=== PATIENT | male | born 1935 | race Caucasian/White ===

== ENCOUNTER → 2023-07-01 14:00 | Outpatient (REF) | payer OTHER, SELFPAY | LOC: HWRAD 14:00 | PROVIDERS: ATTENDING PHYSICIAN Surgery Vascular Surgery; FAMILY PHYSICIAN Family Medicine; REFERRING PHYSICIAN Internal Medicine Cardiovascular Disease | DX: I71.42 Juxtarenal abdominal aortic aneurysm, without rupture (principal) | CPT/HCPCS: 71275; 74174; Q9967 ==

== ENCOUNTER 2023-07-22 06:02 | Inpatient (IN) | payer OTHER, MEDICARE, SELFPAY ==
[2023-07-17 08:23] VITALS: BMI 28.8
[2023-07-17 09:04] LABS: % Basophils 0.5 % (0-2); % Eosinophils 3.4 % (0-6); % Immature Granulocytes 0.4 % (0-0.5); % Lymphocytes 18.9 % (20.5-51.1); % Monocytes 12.5 % (1.7-9.3); % Neutrophils 64.3 % (42.2-75.2); Absolute Eosinophils 0.2 10^3/uL (0-0.7); Absolute Lymphocytes 1.1 10^3/uL (1.2-3.4); Absolute Monocytes 0.7 10^3/uL (0.1-0.6); Absolute Neutrophils 3.6 10^3/uL (1.4-6.5); Hematocrit 36.5 % (39.0-52.0); Hemoglobin 12.2 g/dL (13.0-18.0); Mean Corp Hgb Conc. 33.4 g/dL (33.0-37.0); Mean Corpuscular Hgb 33.3 pg (27.0-31.0); Mean Corpuscular Volume 99.7 fL (80.0-94.0); Mean Platelet Volume 9.9 fL (7.4-10.4); Nucleated Red Blood Cells % 0 % (-); Platelet Count 199 10^3/uL (130-400); Red Blood Cell Count 3.66 10^6/uL (4.70-6.10); Red Cell Dist. Width 14.3 % (11.5-14.5); White Blood Cell Count 5.6 10^3/uL (4.8-10.8)
[2023-07-17 09:10] LABS: PT 14.2 Sec (11.4-14.6)
[2023-07-17 09:24] LABS: Glycohemoglobin (HgbA1c) 5.5 % (4.0-5.6)
[2023-07-17 11:15] LABS: Blood Urea Nitrogen 29 mg/dl (9-20); Calcium 9.3 mg/dl (8.4-10.2); Carbon Dioxide 25 mmol/L (22-30); Chloride 107 mmol/L (98-107); Estimated Creatinine Clearance 38 ml/min; Glucose 94 mg/dl (70-99); Potassium 4.5 mmol/L (3.5-5.1); Sodium 136 mmol/L (135-145); eGFR 58.17
[2023-07-22] VITALS (15 sets, daily range): BP systolic 104–155; BP diastolic 54–83; BMI 28.3
--- NOTE | 2023-07-22 07:00 | W.SUR.PREOP ---
Addendum entered and electronically signed by Ken Samuels MD 07/22/23 07:37:
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 Streaming of contrast into the thrombus burden. Some overall ominous findings. Significant concern for rupture. I have
discussed with him clearly need for celiac artery coverage. Other alternative would be snorkel (long snorkel) or periscope. My concern with these would be with a snorkel just distal to the snorkel only 1.5 cm to seal. Therefore inadequate distal
seal likely. And my concern with the periscope is potential coverage of the SMA by the periscope stent. Also sealing is a concern in that setting. Therefore I do not think there is any other great option at without open surgical revascularization
of the celiac/hepatic artery. However he is 88 years old with cardiomyopathy and an EF of 35 to 40%. Significantly high risk as is. I have discussed this all with him. He understands all the risks. Therefore we will plan advertent coverage of
celiac artery with stent. (Without revascularization). Forgut ischemia risks again discussed (in addition to other risks as discussed in office as well). He understands all wishes to proceed.
Original Note:
Pre-Operative Surgical Note
-
I have examined this patient prior to the performance of the scheduled procedure.
The patient's condition is unchanged from the time of the current History and
Physical and the patient is able to undergo the scheduled procedure.
--- NOTE | 2023-07-22 10:03 | W.SUR.POST ---
Surgical Immediate Post Op
Note
Pre Op Diagnosis: AAA
Post Op Diagnosis: AAA
Procedure Performed: TEVAR
Primary Surgeon: Arvind
Assist: Yamilet RIVAS
Anesthesia: General
Estimated Blood Loss: 20cc
Fluids: see anesthesia flow sheet
Drains/Shunts: none
Specimens/Cultures: none
Doppler/Duplex/Angio (Y/N): Y
Complications: none
Operative Findings: Palpable
[2023-07-22 10:44] LABS: Hematocrit 35.4 % (39.0-52.0); Mean Corp Hgb Conc. 33.9 g/dL (33.0-37.0); Mean Corpuscular Hgb 33.2 pg (27.0-31.0); Mean Corpuscular Volume 98.1 fL (80.0-94.0); Mean Platelet Volume 9.8 fL (7.4-10.4); Platelet Count 211 10^3/uL (130-400); Red Blood Cell Count 3.61 10^6/uL (4.70-6.10); Red Cell Dist. Width 14.3 % (11.5-14.5); White Blood Cell Count 10.7 10^3/uL (4.8-10.8)
--- NOTE | 2023-07-22 10:48 | OR.RPT ---
Operative Report
Operative Report
PROCEDURE DATE: 07/22/2023
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
Postoperative diagnosis: Same
Procedure:
1. (TEVAR) Endovascular repair of thoraco-abdominal aortic aneurysm with Dodson conformable 34mm x 15cm thoracic aortic endoprosthesis. ([id number]).
2. Percutaneous right common femoral artery closure.
3. Selective cannulation of celiac and superior mesenteric artery with selective celiac and mesenteric angiography.
4. Supervision and interpretation
Surgeon: Arvind
Vocational Technical Education Teacher: Yamilet
Complications: None
Anesthesia: General
Fluoro:
18.3min
1128 mGy
278.62 DAP
Indications for procedure:
Patient with known history of abdominal aortic aneurysm. Recent ultrasound had suggested significant enlargement of the proximal segment from 3 cm prior to over [address] angiogram was ordered by me after seeing him. This was done relatively
expeditiously. This confirmed a thoracoabdominal aortic aneurysm (type V) that terminated just short of the celiac artery. There was somewhat of a calcified rim but it had a large saccular appearance, as well as streaming of contrast into the
thrombus which potentially portended increased rupture risk. Therefore I discussed with patient endovascular repair. Given his age and depressed cardiac function/cardiomyopathy, I felt he was not a candidate for an open surgical or hybrid open
surgical approach. We discussed extensively coverage of the celiac artery intentionally. Discussed endovascular revascularization options (snorkel or chimney) were right with difficulty of potentially diminishing adequate seal of the stent graft
distally. In addition periscope type stent graft in the celiac not only around the risk of poor sealing distally but also coverage of the SMA inadvertently. There appeared to be collateralization through the pancreatic bed on preoperative CT
angiogram imaging. Therefore discussed intentional coverage of the celiac artery. I had discussed also amongst other risks with the patient the risk of paraplegia. Given his age, reasonable collateralization, short length of coverage, I felt that
preoperative spinal drainage carries more risk than benefit. Risk/benefits/alternatives of TEVAR were fully discussed. Patient understood all wish to proceed.
Description of procedure:
Patient was identified brought to the operating room placed on the table in supine position. After the adequate administration of anesthesia and perioperative antibiotics he was prepped and draped in the standard surgical fashion. A standard
preoperative timeout was undertaken and everybody was in agreement the plan. Bilateral common femoral artery access was obtained under direct duplex ultrasound guidance. 6 [place] sheaths were placed over 0.035 inch wires. In the right groin a 1
cm incision was made around the sheath entry site, and, blunt dissection was undertaken with hemostats to facilitate percutaneous suture delivery. Next, using the ProGlide suture system, percutaneous sutures were deployed at the 10:00 and 2 o'clock
position in the right groin in the standard fashion. Suture strands were tagged outside the skin. We exchanged for 11 [place] sheath in the right groin. Next using a KMP catheter, I guided wires into the supraceliac aorta from the right groin, and
then exchanged for an Amplatz wire and then exchanged under direct fluoroscopy for a 22 [place] Dodson dry seal sheath.
Next, I planned to selectively catheterize both the celiac and SMA so as to balloon occluded test the celiac artery to assess for collateral flow via SMA. Next, I then inserted a second wire and a visceral selective type catheter through the 22
[place] Dodson dry seal sheath. I was able to hook and cannulate the superior mesenteric artery. This proved to be somewhat challenging. But angiogram confirmed as in the true lumen. Next, through my left sided sheath access I used another visceral
selective catheter and tried to hook the celiac artery. I was able to hook it multiple times, but could not get any wire purchase. This was likely due to the tortuosity or the J like curve (on preoperative CT imaging patient had a median arcuate
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 Therefore at this point, I felt that this was more risky than beneficial. I therefore aborted attempting to cannulate the celiac artery any further. In
addition, I wished to maintain SMA access for the TEVAR stenting. Therefore I then withdrew my SMA catheter and wire from the right sided Dodson dry seal access, and we cannulated it from the left-sided access. I was able to gain wire access
distally after confirming I was in the true lumen of the SMA. I then exchanged for a glide catheter and then a Foster wire. I then withdrew my glide catheter and maintained wire access in the SMA.
Now I inserted a pigtail catheter through my right-sided access, and I went to a lateral projection with the C arm. I performed power injection aortography. I was able to as such marked the aneurysm, as well as marked the origin of the celiac and
the SMA (although the SMA origin could be seen with my wire in place). I therefore marked the distalmost aspect of the seal zone that was possible if I was still landed directly at the origin of the SMA. However I noted that I had at least 3 cm of
seal zone in the aneurysm, 2-1/2 cm at least of which was distal to the celiac artery. Therefore I felt I could safely not encroach on the origin of the SMA and still obtain adequate seal. Having locked the gantry in the table in position and
marked the screen, I now exchanged out my pigtail catheter over a Amplatz wire for the device which was a Dodson conformable thoracic stent graft 34 mm x 34mm x 15 cm ([id number]). I then positioned it in place again due to adequate seal length
distally I did not encroach too much on the SMA origin. At this point, I had my anesthesiology colleagues raise the mean arterial blood pressures over 90 mm (closer to 95 mm, though patient starting pressures were much lower and therefore this was
an adequate rise I felt). Once satisfied with positioning, I deployed it in the standard fashion. This was a conformable stent graft and therefore it was deployed 50%. I was happy with the positioning and did not need to move it. I therefore
then completed the deployment and release of constraints. I was very satisfied with the positioning. I then withdrew the delivery device. I used a molding balloon to balloon mold the proximal and distal seal zones. I now exchanged for a pigtail
catheter and performed lateral and AP completion aortography. This demonstrated excellent positioning of the stent graft. No evidence of endoleak. Complete exclusion of the aneurysm was noted. The SMA filled briskly and completely. And I could
easily see filling through collaterals of the celiac, hepatic, and splenic arteries. To be sure, however, I exchanged for a glide catheter into the SMA (had wire in place) and performed angiography through this catheter directly in the SMA. This
demonstrated excellent filling of the SMA with brisk filling retrograde through the pancreatic bed and gastroduodenal artery into the hepatic artery (both hepatic branches filled) as well as back to near the origin of the celiac and filling the
splenic artery. At this point I was very satisfied.
The pigtail catheter was exchanged out for Amplatz wire again.
Next, I removed the sheath while cinching down the percutaneous sutures in the right groin. Once hemostasis was noted the wire was then withdrawn, the knot was tightened with a knot pusher. Hemostasis was confirmed. The knot was then locked and
the suture strands trimmed. In the left groin, the wires and catheters were withdrawn. The 6 [place] sheath was withdrawn and manual pressure was applied to the puncture site. The patient was given protamine to reverse the heparin. Hemostasis was
fully achieved bilateral groins with good femoral pulses bilaterally. The small skin incisions were then closed with 4-0 Monocryl subcuticular stitch and Dermabond was applied. Patient tolerated procedure well. He had palpable DP pulses
bilaterally upon completion. In addition, he awoke moving all 4 extremities to command with good proximal lower extremity bilateral strength as well. Mean arterial pressures were maintained.
[2023-07-22 10:52] LABS: INR 1.16; PT 14.7 Sec (11.4-14.6)
[2023-07-22 10:53] LABS: APTT 30.5 Sec (23.4-35.0)
[2023-07-22 10:59] LABS: Blood Urea Nitrogen 29 mg/dl (9-20); Calcium 8.4 mg/dl (8.4-10.2); Carbon Dioxide 21 mmol/L (22-30); Chloride 107 mmol/L (98-107); Estimated Creatinine Clearance 42 ml/min; Glucose 172 mg/dl (70-99); Potassium 4.1 mmol/L (3.5-5.1); Sodium 137 mmol/L (135-145); eGFR > 60.00
[2023-07-22 11:00] LABS: ALT (SGPT) 25 U/L (0-50); AST (SGOT) 28 U/L (17-59); Albumin 3.4 g/dl (3.5-5.0); Alkaline Phosphatase 125 U/L (38-126); Direct Bilirubin 0.3 mg/dl (0.0-0.4); Total Bilirubin 0.7 mg/dl (0.2-1.3); Total Protein 5.7 g/dl (6.3-8.2)
[2023-07-22] MEDS: NSS 1000 IV (11:00)
--- NOTE | 2023-07-22 11:56 | PTCARENOTE ---
received pt from the PACU into 2263. Pt is AAOX4, [place], Neurological, neurovascular and TEVAR checks completed and intact. Sinus rhythm on tele, + peripheral pulses, no edema noted. Pt denies CP. Lungs diminished, dry cough noted, pox 94% on 2L NC.
Coughing and deep breathing encouraged. +bs, denies nausea. Chatterjee catheter draining clear yellow. Right groin w surgical glue intact, dressing to left groin intact. PIV flush easily. Right radial robert leveled and zeroed. Patient denies pain at
present.
Confirmed w Chio Woodard PA-C titrate Levophed for MAP 90-100 and discontinue NSS after 1L completed.
Interview questions completed. Family at bedside and updated on plan of care.
DRIPS: Levophed 12mcg
NSS 80ml/hr
[2023-07-22] MEDS: LEVOPHED 250 IV ×2 (12:14→19:31)
[2023-07-22] MEDS: PLAVIX 75 MG PO (12:44)
--- NOTE | 2023-07-22 14:44 | CM ---
Chart reviewed. Patient is independent of ADLS, lives with his in the independent living at [facility], ambulates with a SPC. Patient is not current with VN. Patient is not interested at this time. Plan is for the patient to return home.
CM to follow
[2023-07-22] MEDS: HEPARIN 5000 UNITS SC ×2 (16:03→23:57)
--- NOTE | 2023-07-22 16:21 | PTCARENOTE ---
pt repositioned and HOB elevated 30 degrees as ordered. VSS, sinus rhythm on tele, pt denies pain. Levophed titrated to maintained MAP 90-100. NSS maintained at 80ml/hr. pt tolerated lunch tray. TEVAR, neurological and neurovascular checks remain
intact.
[2023-07-22] MEDS: ENTRESTO 24 MG/26 MG PO (19:37)
--- NOTE | 2023-07-22 21:16 | PTCARENOTE ---
Assumed care of patient at 1730. Patient found resting in bed at time of assessment. Patient is AOx4, follows commands appropriately, moves all extremities. Patient reports being RAMPART wears hearing aids at home. Patient post op for TEVAR see worklist
for assessment details. Lung sounds are diminished at the bases, patient is on 2L via NC with saO2 at 97-98%. Heart sounds have a regular rate and rhythm, patient is NSR on the monitor, patient has normal palpable pulses and no noted edema. Patient
has soft nontender abdomen with hypoactive BS. There is a [place] draining clear yellow urine in place. Patient has R groin incision approx with surg adhesive CONSERVATION ASSISTANT. There is L groin incision with 4x4 gauze dressing CDI. Patient has a R radial Beatrice,
20G R FA, 20G L Hand, and 4 Fr micro IV in the L upper arm. Patient currently receiving NSS at 80ml/hr and Levo @ 10mcg. No c/o pain at this time. Vital signs as follows: T-98.5 P-77 BP-155/68 MAP-102 RR-20. Patient is stable.
[2023-07-22] MEDS: LIPITOR 80 MG PO (22:07)
[2023-07-23] VITALS (31 sets, daily range): BP systolic 89–148; BP diastolic 43–102; BMI 29.9
--- NOTE | 2023-07-23 | PTCARENOTE ---
Patient reassessed. Remains SR with first deg Av block on the monitor. Patient on 14 Levo to maintain MAP at 90-100. Off O2. No c/o pain. Patient is stable.
[2023-07-23] MEDS: LEVOPHED 250 IV (00:41)
[2023-07-23 03:34] LABS: Hematocrit 38.7 % (39.0-52.0); Hemoglobin 12.7 g/dL (13.0-18.0); Mean Corp Hgb Conc. 32.8 g/dL (33.0-37.0); Mean Corpuscular Hgb 33.4 pg (27.0-31.0); Mean Corpuscular Volume 101.8 fL (80.0-94.0); Mean Platelet Volume 10.6 fL (7.4-10.4); Platelet Count 245 10^3/uL (130-400); Red Cell Dist. Width 16.5 % (11.5-14.5); White Blood Cell Count 18.3 10^3/uL (4.8-10.8)
[2023-07-23 03:45] LABS: INR 1.35; PT 16.5 Sec (11.4-14.6)
[2023-07-23 03:46] LABS: APTT 29.9 Sec (23.4-35.0)
[2023-07-23 04:02] LABS: ALT (SGPT) 24 U/L (0-50); AST (SGOT) 36 U/L (17-59); Albumin 3.4 g/dl (3.5-5.0); Alkaline Phosphatase 83 U/L (38-126); Blood Urea Nitrogen 27 mg/dl (9-20); Calcium 8.7 mg/dl (8.4-10.2); Carbon Dioxide 19 mmol/L (22-30); Chloride 110 mmol/L (98-107); Direct Bilirubin 0.4 mg/dl (0.0-0.4); Estimated Creatinine Clearance 42 ml/min; Glucose 181 mg/dl (70-99); Potassium 4.5 mmol/L (3.5-5.1); Sodium 139 mmol/L (135-145); Total Bilirubin 0.9 mg/dl (0.2-1.3); Total Protein 6.1 g/dl (6.3-8.2); eGFR > 60.00
[2023-07-23] MEDS: NSS IV (04:27)
--- NOTE | 2023-07-23 04:54 | PTCARENOTE ---
Patient reassessed. Levo @14. Remains SR with first degree on the monitor. AM labs obtained. AM hygiene care provided. Patient is stable.
[2023-07-23] MEDS: TYLENOL 650 MG PO (05:47)
--- NOTE | 2023-07-23 08:00 | PTCARENOTE ---
Patient received from hourly shift manager resting comfortably in bed, AAO X 3, denies pain. Neuro/TEVAR assessments wnl, see work list interventions. NSR via cm, SaO2 @ 99% on 2lnc. R radial arterial line present - leveled, flushed, and calibrated w/good
waveform returned. Levophed infusing @ 14mcg. Chatterjee catheter to gravity. All procedural sites stable. Dr. Samuels and team to bedside, updated to status. Patient informed of plan of care for the day, in agreement. See work list for full assessment and
interventions performed.
--- NOTE | 2023-07-23 08:07 | W.PN.VS ---
Addendum entered and electronically signed by Sixto Chatterjee III, MD 07/23/23 11:30:
This patient was seen and examined with EVELYN Rodgers. I agree with the history and physical exam as well as the assessment and plan. I have the following additions:
Doing well POD#1 TEVAR
No complaints
Lower extremity motor 5/5, proximal/distal. Symmetric
Groins soft bilaterally
Liberalize MAP goals
Wean Levophed (MAP>/=70)
Out of bed
Signed:
Sixto Chatterjee III, MD
[facility]
[phone] (axyb)
Original Note:
Today's Communication / Plan
-
Seen and assessed with Dr. Chatterjee
Assessment/Plan
-
POD1 FEVAR
Plan:
-Wean levo, maps > 70
-DC A-line when off levo
-DC Chatterjee when out of bed
-Out of bed/ambulate
-PT
-Diet
-Will reassess this afternoon
Subjective Data
-
Date of Service: July 23, 2023
Patient seen at bedside this a.m. with Dr. Chatterjee. Patient offers no complaints at this time. No events overnight. Levo running at 14. Patient complains it was hard to sleep when he was constantly checked on.
Objective Data
-
Vital Signs
Temp Pulse Resp BP Pulse Ox
97.7 F 79 16 138/63 95
07/23/23 03:00 07/23/23 07:00 07/23/23 07:00 07/23/23 07:00 07/23/23 07:27
Intake and Output
07/22/23 07/23/23 07/24/23
06:59 06:59 06:59
Intake Total 2063.0 / 2115.5 52.5 / 52.5
Output Total 2159 135 / 135
Balance -97.0 / -179.5 -82.5 / -82.5
Intake:
IV fluids (Total) 2062. / 2114. 52.5 / 52.5
Levophed 868.0 / 920.5 52.5 / 52.5
normal saline 1195 / 1195
Output:
Urine, Chatterjee 2159 135 / 135
Lab Results
07/23/23 03:20
07/23/23 03:20
Calcium 8.7 mg/dl (8.4-10.2) 07/23/23 03:20
Total Bilirubin 0.9 mg/dl (0.2-1.3) 07/23/23 03:20
Direct Bilirubin 0.4 mg/dl (0.0-0.4) 07/23/23 03:20
AST 36 U/L (17-59) 07/23/23 03:20
ALT 24 U/L (0-50) 07/23/23 03:20
Alkaline Phosphatase 83 U/L (38-126) 07/23/23 03:20
Total Protein 6.1 g/dl (6.3-8.2) L 07/23/23 03:20
Albumin 3.4 g/dl (3.5-5.0) L 07/23/23 03:20
Physical Exam
-
AAOx3
No tachypnea, on 2L
No tachycardia
MAPs 90-100on levo
Abdomen soft
Bilateral groin sites clean dry and intact, soft, no drainage
Bilateral feet warm
[2023-07-23] MEDS: ALDACTONE PO (08:29)
[2023-07-23] MEDS: PLAVIX 75 MG PO (09:09)
[2023-07-23] MEDS: B COMPLEX w/VITAMIN C 1 CAPLET PO (09:09)
[2023-07-23] MEDS: VITAMIN C 500 MG PO (09:09)
[2023-07-23] MEDS: THERAGRAN 1 TABLET PO (09:09)
[2023-07-23] MEDS: ENTRESTO 24 MG/26 MG 1 TAB PO (09:09)
[2023-07-23] MEDS: PACERONE 200 MG PO (09:09)
[2023-07-23] MEDS: HEPARIN 5000 UNITS SC ×3 (09:10→23:27)
--- NOTE | 2023-07-23 11:38 | CM ---
Chart reviewed. Patient is independent of ADLS, lives with his in the independent living at [facility], ambulates with a SPC. Plan is for the patient to return home. CM to follow
--- NOTE | 2023-07-23 12:12 | PTCARENOTE ---
VS obtained, stable. Patient oob having lunch, at bedside. Denies pain.
[2023-07-23] MEDS: NSS 500 IV (14:17)
--- NOTE | 2023-07-23 16:27 | PTCARENOTE ---
VS obtained, assessment stable, resting comfortably. Patient awaiting transfer to .
--- NOTE | 2023-07-23 18:36 | PTCARENOTE ---
patient transfer from CVICU. AAOX3, Vs stable, no s/s of distress noted. Left groin site dressing intact and dry. R groin site intact and dry, SMITHA. call abernathy within reach. plan of care ongoing.
--- NOTE | 2023-07-23 18:37 | PTCARENOTE ---
Report called to RUPA Nathan, 2N. Patient transported to 2130 via wheelchair w/spouse and all belongings.
[2023-07-23] MEDS: LIPITOR 80 MG PO (20:50)
[2023-07-24 03:29] VITALS: BP 93/47
[2023-07-24 05:56] LABS: INR 1.13; PT 14.3 Sec (11.4-14.6)
[2023-07-24 05:57] LABS: APTT 32.1 Sec (23.4-35.0)
[2023-07-24 06:01] LABS: Hematocrit 31.7 % (39.0-52.0); Hemoglobin 10.5 g/dL (13.0-18.0); Mean Corp Hgb Conc. 33.1 g/dL (33.0-37.0); Mean Corpuscular Hgb 32.5 pg (27.0-31.0); Mean Corpuscular Volume 98.1 fL (80.0-94.0); Mean Platelet Volume 10.3 fL (7.4-10.4); Platelet Count 147 10^3/uL (130-400); Red Blood Cell Count 3.23 10^6/uL (4.70-6.10); Red Cell Dist. Width 14.6 % (11.5-14.5); White Blood Cell Count 12.5 10^3/uL (4.8-10.8)
[2023-07-24 06:28] LABS: Blood Urea Nitrogen 32 mg/dl (9-20); Calcium 8.5 mg/dl (8.4-10.2); Carbon Dioxide 26 mmol/L (22-30); Chloride 107 mmol/L (98-107); Estimated Creatinine Clearance 52 ml/min; Glucose 86 mg/dl (70-99); Potassium 4.6 mmol/L (3.5-5.1); Sodium 138 mmol/L (135-145); eGFR > 60.00
[2023-07-24 07:20] VITALS: BP 116/64
[2023-07-24] MEDS: B COMPLEX w/VITAMIN C 1 CAPLET PO (08:39)
[2023-07-24] MEDS: VITAMIN C 500 MG PO (08:39)
[2023-07-24] MEDS: PLAVIX 75 MG PO (08:39)
[2023-07-24] MEDS: THERAGRAN 1 TABLET PO (08:39)
[2023-07-24] MEDS: HEPARIN 5000 UNITS SC (08:39)
[2023-07-24] MEDS: PACERONE 200 MG PO (08:40)
[2023-07-24] MEDS: ALDACTONE 12.5 MG PO (08:46)
[2023-07-24] MEDS: ENTRESTO 24 MG/26 MG 1 TAB PO (08:46)
[2023-07-24 10:26] VITALS: BMI 29.9
--- NOTE | 2023-07-24 10:40 | W.PN.VS ---
Addendum entered and electronically signed by Ken Samuels MD 07/24/23 10:51:
Seen and examined with LUIS Bean. Agree with findings as noted below. Patient without significant complaints. He walked the halls with nursing earlier. Just now we are in the room was a little wobbly on his feet getting up but he notes that when
he for stands up he is little wobbly. Exam otherwise as noted below. Abdomen is soft, nondistended, nontender. Groins flat bilaterally. Feet are warm with palpable DP pulses bilaterally. Neurologically moves all extremities well, good proximal
strength in the lower extremities. Plan/as discussed and noted below. Will ambulate again with nursing to make sure he is steady on his feet before leaving.
Original Note:
Today's Communication / Plan
-
Patient seen and examined with Dr. Ken Samuels, below plan reviewed with attending.
Assessment/Plan
-
POD2 FEVAR
Plan:
-Out of bed/ambulate
-Diet
-Provided home antihypertensive/CHF medications this AM if tolerates will discharge later this afternoon
Subjective Data
-
Date of Service: July 24, 2023
Patient seen and examined offers no complaints, denies lower extremity weakness, ABD pain, or difficulty urinating. Reports ambulating around halls and tolerating PO diet. Reports eagerness for discharge to home.
Objective Data
-
Vital Signs
Temp Pulse Resp BP Pulse Ox
97.5 F 83 18 116/64 95
07/24/23 07:20 07/24/23 08:46 07/24/23 07:20 07/24/23 08:46 07/24/23 07:20
Intake and Output
07/23/23 07/24/23 07/25/23
06:59 06:59 06:59
Intake Total 2063.0 / 2115.5 1400.0 / 1400.0
Output Total 2160 / 2295 975 / 975
Balance -97.0 / -179.5 425.0 / 425.0
Intake:
Oral fluids 720 / 720
IV fluids (Total) 2063.0 / 2115.5 680.0 / 680.0
Levophed 868.0 / 920.5 180.0 / 180.0
NSS 500 / 500
normal saline 1195 / 1195
Output:
Urine, Chatterjee 2160 / 2295 575 / 575
Urine, Voided 400 / 400
Other:
Number of approximated MODERATE 5
amounts of urine
Number of approximated LARGE 1
amounts of urine
Lab Results
07/24/23 05:06
07/24/23 05:06
Calcium 8.5 mg/dl (8.4-10.2) 07/24/23 05:06
Total Bilirubin 0.9 mg/dl (0.2-1.3) 07/23/23 03:20
Direct Bilirubin 0.4 mg/dl (0.0-0.4) 07/23/23 03:20
AST 36 U/L (17-59) 07/23/23 03:20
ALT 24 U/L (0-50) 07/23/23 03:20
Alkaline Phosphatase 83 U/L (38-126) 07/23/23 03:20
Total Protein 6.1 g/dl (6.3-8.2) L 07/23/23 03:20
Albumin 3.4 g/dl (3.5-5.0) L 07/23/23 03:20
Physical Exam
-
AAOx3
No tachypnea, on room air
No tachycardia
Abdomen soft
Bilateral groin sites clean dry and intact, soft, no drainage
Bilateral feet warm
[2023-07-24 11:10] VITALS: BP 115/55
--- NOTE | 2023-07-24 12:16 | W.DS.TRANS ---
DC Summary - Digital Marketing Manager
-
Discharge Instructions:
Sleep Apnea Risk Low
Discharge Diagnosis/Procedures TEVAR
Diet As tolerated
Activity No strenuous activity
Driving Restrictions No driving for 1 week
Bathing Restrictions OK to Shower
Instructions:
Stand-Alone Forms: DC Instr - Vascular OR
Changes to Home Medications: No
Discharge Medications:
DC Medications w/original date entered in [employer]
Align 1 dose PO DAILY probiotic 07/16/23
Vitamin C 1 tab PO DAILY Supplement 07/16/23
Vitamin D3 1 tab PO DAILY Supplement 07/16/23
amiodarone 200 mg tablet 200 mg PO DAILY Arrhythmia 07/16/23
atorvastatin 80 mg tablet 80 mg PO HS High Cholesterol 07/16/23
beta carotene 1 dose PO DAILY Supplement 07/16/23
clopidogrel 75 mg tablet 75 mg PO DAILY Blood Clot Prevention/Tx 07/16/23
metoprolol succinate 25 mg tablet,extended release 24 hr 25 mg PO HS Blood Pressure 07/16/23
multivitamin 1 tab PO DAILY Supplement 07/16/23
sacubitril 24 mg-valsartan 26 mg tablet (Entresto) 1 tab PO BID heart failure 07/16/23
spironolactone 25 mg tablet 12.5 mg PO DAILY Blood Pressure/edema 07/16/23
vitamin B complex 1 cap PO DAILY Supplement 07/16/23
vitamin E 1 tab PO DAILY Supplement 07/16/23
Home Medication Changes
Pending Results: No
--- NOTE | 2023-07-24 13:44 | CM ---
Patient has been medically cleared for discharge to home with [facility] services. will transport home.
--- NOTE | 2023-07-24 14:23 | W.DCSUMMARY ---
Discharge Summary
Discharge Data
Date of Admission: 07/22/23
Date of Discharge: 07/24/23
-
Pending Results: No
Hospital Course
Attending: Arvind
Consultants: Pulmonary medicine
Allergies: NKDA
Procedure with date: 07/23/23:(TEVAR) Endovascular repair of thoraco-abdominal aortic aneurysm with [place] conformable 34mm x 15cm thoracic aortic endoprosthesis
History of present illness: The patient is an 88 -year-old male with multiple medical conditions including: AAA, DE, Afib, ischemic cardiomyopathy, prostate cancer, kidney disease, hypertension, CAD. Patient presented on 07/22/23 for scheduled
procedure with Dr. Samuels. Patient presented at baseline health with no reports of recent illness or trauma.
Hospital Course: Briefly, the patient underwent scheduled TEVAR without complications, and recovered in PACU. Following recovery phase one and two patient was transferred to intensive care unit per protocol for continued hemodynamic monitoring. POD
#1 (07/25/23) Patient neurologically intact, tolerating PO diet doing well overall with mild hypotension on Levophed. Surgical sites clean, dry, and intact and soft. No evidence of hematoma. IV fluids discontinued. Plan to wean levophed to off today.
Holding oral BP meds. POD 2 (07/24/23)Levoped discontinued and a-luiz dc'd. BP remained stable throughout morning and patient able to ambulate without difficulty or incident. Patient stable for discharge to home.
Prescriptions and follow up appointment are included in the DC summary chief dietitian note. All instructions were given to the patient in both written and verbal form and the patient expressed understanding.
Discharge Plan
-
Patient Disposition: Home (Routine Discharge)
Discharge Diagnosis/Procedures: TEVAR
Condition: Good
Diet: As tolerated
Activity: No strenuous activity
Driving Restrictions: No driving for 1 week
Bathing Restrictions: OK to Shower
Stand Alone Forms: DC Instr - Vascular OR
Referrals:
Reza Spicer MD [Family Provider] -
Marisol Osuna PA-C [Specified Professional Personl] - (Our office will call you with your follow up. )
Prescriptions:
Continued
Align
1 dose PO DAILY
multivitamin Tablet
1 tab PO DAILY
atorvastatin 80 mg Tablet
80 mg PO HS
amiodarone 200 mg Tablet
200 mg PO DAILY
clopidogrel 75 mg Tablet
75 mg PO DAILY
spironolactone 25 mg Tablet
12.5 mg PO DAILY
metoprolol succinate 25 mg Tablet Extended Release 24 Hr
25 mg PO HS
vitamin B complex Capsule
1 cap PO DAILY
Entresto 24-26 mg Tablet
1 tab PO BID
Vitamin C
1 tab PO DAILY
Vitamin D3
1 tab PO DAILY
beta carotene
1 dose PO DAILY
vitamin E
1 tab PO DAILY
Discharge Orders:
Discharge Patient (As Directed); Ordered 07/24/23
Ordered By: Jackie Bean
Care Plan Goals
Care Plan Goals:
Problem: Readiness for enhanced knowledge related to diagnosis and treatment plan
Goal: Understand your diagnosis and treatment plan needs, including medications if applicable.
Instructions: Know your diagnosis, underlying causes and treatment plan options, including medications if applicable. Consult with your health care team to learn about your diagnosis and treatment plan, including medications if applicable.
Discharge Date and Time
Print Language: CROATIAN
--- NOTE | 2023-07-24 15:02 | CM ---
Patient has been medically cleared for discharge to home with [facility]. transported home.
== END 2023-07-24 14:33 | disposition home health service (06) | DRG 221 ==
LOC: 2 NORTH 06:02
PROVIDERS: Nurse Practitioner Acute Care; ADMITTING PHYSICIAN Surgery Vascular Surgery; FAMILY PHYSICIAN Family Medicine
PROC: 02VW3DZ Restriction of Thoracic Aorta, Descending with Intraluminal Device, Percutaneous Approach (ICD-10-PCS; 2023-07-22)
DX: I71.60 Thoracoabdominal aortic aneurysm, without rupture, unspecified (principal); I25.5 Ischemic cardiomyopathy; I25.10 Atherosclerotic heart disease of native coronary artery without angina pectoris; I48.91 Unspecified atrial fibrillation; I87.2 Venous insufficiency (chronic) (peripheral); I12.9 Hypertensive chronic kidney disease with stage 1 through stage 4 chronic kidney disease, or unspecified chronic kidney disease; N18.30 Chronic kidney disease, stage 3 unspecified; I25.2 Old myocardial infarction; Z79.01 Long term (current) use of anticoagulants; Z79.899 Other long term (current) drug therapy; Z85.46 Personal history of malignant neoplasm of prostate; Z86.718 Personal history of other venous thrombosis and embolism
CPT/HCPCS: 33881; 34713; 36245; 36415; 71046; 80048; 80053; 80076; 82248; 83036; 85025; 85027; 85610; 85730; 86850; 86900; 86901; 87070; 93005; C1725; C1760; C1769; C1892; C1894; Q9967

== ENCOUNTER → 2023-09-02 09:55 | Outpatient (REF) | payer OTHER, MEDICARE, SELFPAY | LOC: RAD 09:55 | PROVIDERS: ATTENDING PHYSICIAN Registered Nurse; FAMILY PHYSICIAN Family Medicine | DX: I71.42 Juxtarenal abdominal aortic aneurysm, without rupture (principal) | CPT/HCPCS: 71275; 74174; Q9967 ==

== ENCOUNTER → 2024-02-10 10:15 | Outpatient (REF) | payer OTHER, SELFPAY | LOC: HWRAD 10:15 | PROVIDERS: ATTENDING PHYSICIAN Surgery Vascular Surgery; FAMILY PHYSICIAN Family Medicine | DX: I71.6 Thoracoabdominal aortic aneurysm, without rupture (principal) | CPT/HCPCS: 71275; 74174; Q9967 ==

== ENCOUNTER → 2024-06-22 09:48 | Outpatient (REF) | payer OTHER, SELFPAY | LOC: HWRAD 09:48 | PROVIDERS: ATTENDING PHYSICIAN Family Medicine | DX: R91.1 Solitary pulmonary nodule (principal) | CPT/HCPCS: 71250 ==

== ENCOUNTER 2024-08-21 17:24 | Emergency (ER) | payer OTHER, SELFPAY ==
[2024-08-21 17:33] VITALS: BP 130/58
--- NOTE | 2024-08-21 19:28 | ED.MUSCINJ ---
HPI-Injury
General
Chief Complaint: Musculo-Skeletal Complaint
Time Seen by Provider: 08/21/24 19:19
History of Present Illness-Injury
Initial Injury comments:
Patient is a 89-year-old man presenting to the emergency department with shoulder pain after a fall. Patient states that he tripped and his shoulder hit a wall. He did not hit his head or lose consciousness. He is on Plavix. He states that since
he has been here the shoulder pain has improved. No numbness tingling. No weakness. He was ambulatory. He did have a small rug burn to his right knee. No pain elsewhere
Phy Exam
Physical Exam
Physical Exam:
GENERAL: no acute distress
HEENT: atraumatic, extraocular muscles intac
NECK: no midline tenderness, normal range of motion
BACK: no midline tenderness, no other obvious trauma
CHEST: no tenderness, no other obvious trauma
LUNGS: clear to auscultation bilaterally
CARDIOVASCULAR: regular rate and rhythm
ABDOMEN: soft, non-tender, no masses, no other obvious trauma
PELVIS: stable, no obvious injury
EXTREMITIES: Right upper extremity with some pain flexing the right shoulder, no tenderness to palpation, normal cap refill, elbow and wrist unremarkable. Otherwise there is a small abrasion to the right knee with full range of motion, no
tenderness palpation moving all extremities, distal pulses intact, no other obvious trauma
NEUROLOGIC: awake, alert x 3, no focal deficits
Injury Course
Orders/Labs/Results
Orders:
Orders
08/21/24 17:32
Shoulder, Right, Trauma [CR Shoulder, Trauma - Right] Urgent
Comment:
Reason For Exam: fall/pain
08/21/24 19:27
Acetaminophen [Tylenol] 650 mg PO NOW STA
MDM/Problems Addressed
Differential Diagnosis Includes:
Patient is a 89-year-old man presenting to the emergency department after a fall where he hit his shoulder against a wall. Vitals unremarkable and exam does show some pain with range of motion especially upon flexion of the shoulder though no
tenderness palpation of the shoulder or clavicle. Differential signs of fracture versus bruise. History exam not consistent with dislocation. X-ray obtained. Per my interpretation no obvious fracture. Per the official read there is significant
arthritic changes. Will give patient Tylenol. Will discharge with outpatient follow-up.
*Critical Care Note
Total Time (30-74mins, 75-104mins- exclusive of procedures): Not Applicable
ED Attending Note
-
Portions of this chart may have been created with voice recognition software.� Occasional wrong word or��sound alike� substitutions may have occurred due to the inherent limitations of voice recognition software.
Discharge Plan
Departure
Prescriptions:
No Action
Align
1 dose PO DAILY
multivitamin Tablet
1 tab PO DAILY
atorvastatin 80 mg Tablet
80 mg PO HS
amiodarone 200 mg Tablet
200 mg PO DAILY
clopidogrel 75 mg Tablet
75 mg PO DAILY
spironolactone 25 mg Tablet
12.5 mg PO DAILY
metoprolol succinate 25 mg Tablet Extended Release 24 Hr
25 mg PO HS
vitamin B complex Capsule
1 cap PO DAILY
Entresto 24-26 mg Tablet
1 tab PO BID
Vitamin C
1 tab PO DAILY
Vitamin D3
1 tab PO DAILY
beta carotene
1 dose PO DAILY
vitamin E
1 tab PO DAILY
Interventions
Interventions:
*Risk Screen - Suicide Last Done: 08/21/24 17:29
*Neglect/Abuse Screening Last Done: 08/21/24 17:29
Discharge Date and Time
Print Language: FRISIAN
[2024-08-21] MEDS: TYLENOL 650 MG PO (19:40)
== END 2024-08-21 19:46 | disposition home or self-care (01) ==
LOC: EMR 17:24
PROVIDERS: EMERGENCY PHYSICIAN Student in an Organized Health Care Education/Training Program; FAMILY PHYSICIAN Family Medicine
DX: M25.511 Pain in right shoulder (principal); W22.01XA Walked into wall, initial encounter; Z79.02 Long term (current) use of antithrombotics/antiplatelets
CPT/HCPCS: 99283; 73030